=== PATIENT | male | born 1980 | race Caucasian/White ===

== ENCOUNTER 2021-08-05 15:14 | Observation (INO) | payer OTHER, MEDICAID ==
[~2021-08-05] VITALS: Ht 185.4 cm; Wt 124.7 kg
[2021-08-05 15:52] LABS: HEMOGLOBIN 15.2 gm/dl (14.0-17.5); RED BLOOD COUNT 5.2 M/UL (4.20-5.50); WHITE BLOOD COUNT 27.1 K/UL (4.5-11.0)
[2021-08-05 16:16] LABS: BUN/CREATININE RATIO 28 (0-10)
[2021-08-06 06:37] LABS: RED BLOOD COUNT 4.8 M/UL (4.20-5.50)
[2021-08-06 06:55] LABS: BUN/CREATININE RATIO 26 (0-10)
[2021-08-06] MEDS ORDERED: AMLODIPINE BESY10 MG PO (10:26)
[2021-08-06] MEDS ORDERED: CHLORTHALIDONE25 MG PO (10:26)
[2021-08-06] MEDS ORDERED: FAMOTIDINE20 MG PO (10:27)
[2021-08-06] MEDS ORDERED: LATANOPROST 0.7.5 ML OU (10:27)
[2021-08-06] MEDS ORDERED: POTASSIUM CHLO10 ME2 PO (10:27)
[2021-08-06] MEDS ORDERED: ATORVASTATIN CA40 MG PO (10:28)
[2021-08-06] MEDS ORDERED: VITAMIN D21250 MCG PO (10:28)
[2021-08-06] MEDS ORDERED: CARVEDILOL25 MG PO (10:28)
[2021-08-06] MEDS ORDERED: GLIMEPIRIDE4 MG PO (10:29)
[2021-08-06] MEDS ORDERED: GABAPENTIN300 MG PO (10:29)
[2021-08-06] MEDS ORDERED: AVAPRO300 MG PO (10:29)
[2021-08-06] MEDS ORDERED: METFORMIN HCL1000 MG PO (10:29)
[2021-08-06] MEDS ORDERED: ASPIRIN EC81 MG PO (10:30)
[2021-08-06] MEDS ORDERED: TRULICITY0.75 MG/0. SQ (10:30)
[2021-08-06] MEDS ORDERED: FISH OIL 1,0001 EACH PO (10:30)
[2021-08-06 15:57] LABS: HEMOGLOBIN 14.1 gm/dl (14.0-17.5)
[2021-08-07 05:29] LABS: RED BLOOD COUNT 4.55 M/UL (4.20-5.50)
[2021-08-07 05:44] LABS: WHITE BLOOD COUNT 10.3 K/UL (4.5-11.0)
[2021-08-07 06:42] LABS: BUN/CREATININE RATIO 17 (0-10)
[2021-08-07] MEDS ORDERED: ELIQUIS 5 MG TAB5 MG PO (09:49)
[2021-08-07] MEDS ORDERED: ELIQUIS5 M1 PO (09:49)
[2021-08-07] MEDS ORDERED: PROTONIX40 MG PO (09:49)
== END 2021-08-07 15:35 | disposition home or self-care (01) ==
LOC: ER1 15:14 → CDU 21:42 → 3 EAST 08-06 19:41
PROVIDERS: Internal Medicine; Internal Medicine Gastroenterology; Physician Assistant; ADMIT Internal Medicine
DX: I26.99 Other pulmonary embolism without acute cor pulmonale (principal); E11.9 Type 2 diabetes mellitus without complications; I10 Essential (primary) hypertension; E78.5 Hyperlipidemia, unspecified; G47.33 Obstructive sleep apnea (adult) (pediatric); D72.829 Elevated white blood cell count, unspecified; Z20.822 Contact with and (suspected) exposure to COVID-19; Z86.16 Personal history of COVID-19; Z86.718 Personal history of other venous thrombosis and embolism; Z86.711 Personal history of pulmonary embolism; Z79.82 Long term (current) use of aspirin; Z79.84 Long term (current) use of oral hypoglycemic drugs; Z79.899 Other long term (current) drug therapy; Z91.018 Allergy to other foods
CPT/HCPCS: 36415; 71045; 80048; 80053; 82962; 83036; 83605; 83735; 84132; 85014; 85018; 85025; 85610; 85730; 87040; 93971; 94660; 94760; 96365; 96366; 96375; 96376; 99285; C9113; G0378; J0456; J0692; J0696; J1644; J2405; J7030; Q9967; U0002